=== PATIENT | female | born 1955 | race Caucasian/White ===

== ENCOUNTER 2021-05-13 07:54 | Inpatient (IN) | payer OTHER ==
[2021-05-13] MEDS ORDERED: SODIUM CHLORIDE IV ONE (08:34)
[2021-05-13] MEDS ORDERED: ACETAMINOPHEN 1000 MG/100 ML VIAL IVPB ONE (08:39)
[2021-05-13] MEDS ORDERED: ACETAMINOPHEN INJECTION 100 ML IVPB ONE (09:05)
[2021-05-13 09:48] LABS: BASO % 0.4 % (0-2.0); EOS % 0.1 % (0-4.5); HEMATOCRIT 41.1 % (32.4-45.2); HEMOGLOBIN 13.9 GM/dL (10.7-15.3); LYMPH % 14.5 % (8-40); MCH 33.1 pg (25.7-33.7); MCHC 33.9 g/dl (32.0-36.0); MEAN CELL VOLUME 97.5 fl (80-96); MEAN PLT VOLUME 8.1 fl (7.5-11.1); MONO % 6.2 % (3.8-10.2); NEUT % 78.8 % (42.8-82.8); PLATELET COUNT 445 10^3/uL (134-434); RBC 4.22 M/mm3 (3.60-5.2); RDW 14.9 % (11.6-15.6); WHITE BLOOD COUNT 10.4 K/mm3 (4.0-10.0)
[2021-05-13 09:55] LABS: INR 1.03 (0.83-1.09); PROTHROMBIN TIME (PATIENT) 12.1 SEC (9.7-13.0)
[2021-05-13 09:58] LABS: ACTIVATED PTT 26.6 SECONDS (25.2-36.5)
[2021-05-13 10:08] LABS: VENOUS BASE EXCESS 3.5 mmol/L (-2-2); VENOUS O2 SATURATION 95.5 % (70-80); VENOUS PH 7.404 (7.310-7.410)
[2021-05-13 10:18] LABS: MAGNESIUM 2.7 mg/dL (1.8-2.4); PHOSPHOROUS 2.5 mg/dL (2.5-4.9)
[2021-05-13 10:20] LABS: EPI CELLS 4 /uL (0-25.1); HYALINE CASTS 1 /uL (0-3.1); URINE APPEARANCE CLEAR; URINE BACTERIA 0 /uL (0-1359); URINE BILIRUBIN NEGATIVE (NEGATIVE); URINE COLOR YELLOW; URINE GLUCOSE (UA) NEGATIVE (NEGATIVE); URINE KETONE NEGATIVE (NEGATIVE); URINE LEUK ESTERASE TRACE (NEGATIVE); URINE NITRITE NEGATIVE (NEGATIVE); URINE PROTEIN NEGATIVE (NEGATIVE); URINE RBC 54 /uL (0-23.9); URINE UROBILINOGEN 0.2 mg/dL (0.2-1.0); URINE WBC 24 /uL (0-25.8)
[2021-05-13 10:24] LABS: ALK PHOS 82 U/L (45-117); ANION GAP 1 MMOL/L (8-16); BILIRUBIN,TOTAL 0.2 mg/dL (0.2-1); BLOOD UREA NITROGEN 41.6 mg/dL (7-18); CALCIUM 8.9 mg/dL (8.5-10.1); CHLORIDE 118 mmol/L (98-107); CO2 32 mmol/L (21-32); CREATININE 0.6 mg/dL (0.55-1.3); GLUCOSE,RANDOM 146 mg/dL (74-106); SGOT/AST 241 U/L (15-37); SGPT/ALT 395 U/L (13-61); SODIUM 151 mmol/L (136-145); TOT PROT 7.7 g/dl (6.4-8.2)
[2021-05-13] MEDS ORDERED: PIPERACILLIN/TAZOB 3.375 GM 3.375 GM/50 ML BAG IVPB ONE ×2 (14:03→19:03)
[2021-05-13] MEDS: PIPERACILLIN/TAZOB 3.375 GM 3.375 GM in DEXTROSE 5%-WATER - 50 ML IVPB SCH ×2 (14:11→19:04)
[2021-05-13] MEDS ORDERED: MINERAL OIL ENEMA 133 ML ENEMA PR ONE (15:27)
[2021-05-13] MEDS: DEXTROSE 5%-0.45% SALINE 1,000 ML IV SCH ×2 (15:30→23:58)
[2021-05-13] MEDS: CARBIDOPA/LEVODOPA 25/100 TABLET (FP) GT SCH (22:15)
[2021-05-13] MEDS: METOPROLOL TARTRATE 25 MG TABLET (FP) GT SCH (22:15)
[2021-05-13] MEDS: HEPARIN NA (PORCINE) 5,000 UNITS/ML 1ML VIAL SQ SCH (22:15)
[2021-05-13] MEDS: BACLOFEN 10 MG TABLET (FP) PEG SCH (22:16)
[2021-05-13] MEDS: ARTIFICIAL TEARS (POLYVINYL ALCOHOL) OPTH DROPS OD SCH (22:16)
[2021-05-14 00:58] VITALS: BMI 15.7
[2021-05-14] MEDS ORDERED: PIPERACILLIN/TAZOBACTAM 3.375 GM VIAL IVPB ONE ×3 (01:34→16:59)
[2021-05-14] MEDS ORDERED: DEXTROSE 5%-WATER - 50 ML IVPB ONE ×3 (01:34→16:59)
[2021-05-14] MEDS: PIPERACILLIN/TAZOB 3.375 GM 3.375 GM in DEXTROSE 5%-WATER - 50 ML IVPB SCH ×5 (01:51→20:58)
[2021-05-14] MEDS: ACETAMINOPHEN 650 MG/20.3 ML ORAL SOLUTION (CUPS) PEG PRN ×2 (02:24→10:04)
[2021-05-14] MEDS: CARBIDOPA/LEVODOPA 25/100 TABLET (FP) GT SCH ×3 (05:35→21:48)
[2021-05-14 09:41] LABS: HEMATOCRIT 35.7 % (32.4-45.2); HEMOGLOBIN 11.8 GM/dL (10.7-15.3); LYMPH % 22.2 % (8-40); MCH 32.5 pg (25.7-33.7); MEAN CELL VOLUME 98.4 fl (80-96); MEAN PLT VOLUME 7.9 fl (7.5-11.1); NEUT % 69.8 % (42.8-82.8); PLATELET COUNT 350 10^3/uL (134-434); RBC 3.63 M/mm3 (3.60-5.2); RDW 14.6 % (11.6-15.6); WHITE BLOOD COUNT 13.7 K/mm3 (4.0-10.0)
[2021-05-14] MEDS: HEPARIN NA (PORCINE) 5,000 UNITS/ML 1ML VIAL SQ SCH ×2 (10:03→21:47)
[2021-05-14] MEDS: METOPROLOL TARTRATE 25 MG TABLET (FP) GT SCH ×2 (10:03→21:48)
[2021-05-14] MEDS: BACLOFEN 10 MG TABLET (FP) PEG SCH ×2 (10:04→21:47)
[2021-05-14] MEDS: ARTIFICIAL TEARS (POLYVINYL ALCOHOL) OPTH DROPS OD SCH ×2 (10:05→21:48)
[2021-05-14 10:51] LABS: CREATININE 0.3 mg/dL (0.55-1.3)
[2021-05-14 10:52] LABS: ALBUMIN 2.5 g/dl (3.4-5.0); BILIRUBIN,TOTAL 0.6 mg/dL (0.2-1); CALCIUM 8.5 mg/dL (8.5-10.1)
[2021-05-14 12:23] LABS: BLOOD UREA NITROGEN 23.6 mg/dL (7-18); TOT PROT 6.2 g/dl (6.4-8.2)
[2021-05-14] MEDS: DEXTROSE 5%-0.45% SALINE 1,000 ML IV SCH (15:40)
[2021-05-15] MEDS: ACETAMINOPHEN 650 MG/20.3 ML ORAL SOLUTION (CUPS) PEG PRN ×3 (00:35→14:28)
[2021-05-15] MEDS ORDERED: PIPERACILLIN/TAZOBACTAM 3.375 GM VIAL IVPB ONE ×2 (01:05→17:38)
[2021-05-15] MEDS ORDERED: DEXTROSE 5%-WATER - 50 ML IVPB ONE ×2 (01:06→17:38)
[2021-05-15] MEDS: PIPERACILLIN/TAZOB 3.375 GM 3.375 GM in DEXTROSE 5%-WATER - 50 ML IVPB SCH ×3 (01:22→18:38)
[2021-05-15] MEDS: CARBIDOPA/LEVODOPA 25/100 TABLET (FP) GT SCH ×3 (06:20→21:12)
[2021-05-15] MEDS: DEXTROSE 5%-0.45% SALINE 1,000 ML IV SCH ×2 (07:06→17:43)
[2021-05-15] MEDS: METOPROLOL TARTRATE 25 MG TABLET (FP) GT SCH ×2 (10:36→21:12)
[2021-05-15] MEDS: BACLOFEN 10 MG TABLET (FP) PEG SCH ×2 (10:37→21:11)
[2021-05-15] MEDS: ARTIFICIAL TEARS (POLYVINYL ALCOHOL) OPTH DROPS OD SCH ×2 (10:37→21:13)
[2021-05-15] MEDS: HEPARIN NA (PORCINE) 5,000 UNITS/ML 1ML VIAL SQ SCH ×2 (10:37→21:10)
[2021-05-15] MEDS ORDERED: ACETAMINOPHEN 1000 MG/100 ML VIAL IVPB ONE (19:50)
[2021-05-15] MEDS ORDERED: ONDANSETRON 4 MG/2 ML VIAL IVPUSH ONE (22:55)
[2021-05-16] MEDS ORDERED: PIPERACILLIN/TAZOBACTAM 3.375 GM VIAL IVPB ONE ×3 (03:22→18:04)
[2021-05-16] MEDS ORDERED: DEXTROSE 5%-WATER - 50 ML IVPB ONE ×3 (03:22→18:04)
[2021-05-16] MEDS: PIPERACILLIN/TAZOB 3.375 GM 3.375 GM in DEXTROSE 5%-WATER - 50 ML IVPB SCH ×3 (03:52→18:08)
[2021-05-16] MEDS: CARBIDOPA/LEVODOPA 25/100 TABLET (FP) GT SCH ×3 (05:59→21:56)
[2021-05-16 08:44] LABS: BASO % 0.7 % (0-2.0); EOS % 2.6 % (0-4.5); HEMATOCRIT 35.6 % (32.4-45.2); HEMOGLOBIN 12.3 GM/dL (10.7-15.3); LYMPH % 21.4 % (8-40); MCH 33.2 pg (25.7-33.7); MCHC 34.6 g/dl (32.0-36.0); MEAN CELL VOLUME 95.8 fl (80-96); MEAN PLT VOLUME 8.1 fl (7.5-11.1); MONO % 5.7 % (3.8-10.2); NEUT % 69.6 % (42.8-82.8); PLATELET COUNT 369 10^3/uL (134-434); RBC 3.72 M/mm3 (3.60-5.2); WHITE BLOOD COUNT 9.4 K/mm3 (4.0-10.0)
[2021-05-16] MEDS: ARTIFICIAL TEARS (POLYVINYL ALCOHOL) OPTH DROPS OD SCH ×2 (09:08→21:53)
[2021-05-16] MEDS: ACETAMINOPHEN 650 MG/20.3 ML ORAL SOLUTION (CUPS) PEG PRN ×2 (09:10→18:44)
[2021-05-16] MEDS: HEPARIN NA (PORCINE) 5,000 UNITS/ML 1ML VIAL SQ SCH ×2 (09:11→21:55)
[2021-05-16] MEDS: BACLOFEN 10 MG TABLET (FP) PEG SCH ×2 (09:11→21:55)
[2021-05-16 09:26] LABS: ALBUMIN 2.3 g/dl (3.4-5.0); CALCIUM 8.4 mg/dL (8.5-10.1)
[2021-05-16 09:27] LABS: BLOOD UREA NITROGEN 7.8 mg/dL (7-18)
[2021-05-16] MEDS: METOPROLOL TARTRATE 25 MG TABLET (FP) GT SCH (09:28)
[2021-05-16 09:29] LABS: CREATININE 0.4 mg/dL (0.55-1.3)
[2021-05-16 09:31] LABS: BILIRUBIN,TOTAL 0.7 mg/dL (0.2-1); TOT PROT 6.1 g/dl (6.4-8.2)
[2021-05-16] MEDS ORDERED: POTASSIUM CHLORIDE ORAL LIQUID 20 MEQ/15 ML GT ONE (21:28)
[2021-05-16] MEDS: CARVEDILOL 3.125 MG TABLET (FP) GT SCH (21:55)
[2021-05-17] MEDS ORDERED: PIPERACILLIN/TAZOBACTAM 3.375 GM VIAL IVPB ONE ×3 (01:34→17:01)
[2021-05-17] MEDS ORDERED: DEXTROSE 5%-WATER - 50 ML IVPB ONE ×3 (01:34→17:01)
[2021-05-17] MEDS: PIPERACILLIN/TAZOB 3.375 GM 3.375 GM in DEXTROSE 5%-WATER - 50 ML IVPB SCH ×3 (01:42→17:15)
[2021-05-17] MEDS: ACETAMINOPHEN 650 MG/20.3 ML ORAL SOLUTION (CUPS) PEG PRN ×2 (06:21→21:58)
[2021-05-17] MEDS: CARBIDOPA/LEVODOPA 25/100 TABLET (FP) GT SCH ×3 (06:21→21:57)
[2021-05-17] MEDS: BACLOFEN 10 MG TABLET (FP) PEG SCH ×2 (09:46→21:57)
[2021-05-17] MEDS: HEPARIN NA (PORCINE) 5,000 UNITS/ML 1ML VIAL SQ SCH ×2 (09:46→21:57)
[2021-05-17] MEDS: CARVEDILOL 3.125 MG TABLET (FP) GT SCH ×2 (09:48→21:57)
[2021-05-17] MEDS: ARTIFICIAL TEARS (POLYVINYL ALCOHOL) OPTH DROPS OD SCH ×2 (09:49→21:59)
[2021-05-17] MEDS: METOCLOPRAMIDE HCL 10 MG/10 ML UNIT DOSE CUP GT SCH ×3 (11:17→21:57)
[2021-05-18] MEDS ORDERED: DEXTROSE 5%-WATER - 50 ML IVPB ONE ×3 (01:27→18:29)
[2021-05-18] MEDS ORDERED: PIPERACILLIN/TAZOBACTAM 3.375 GM VIAL IVPB ONE ×3 (01:27→18:29)
[2021-05-18] MEDS: PIPERACILLIN/TAZOB 3.375 GM 3.375 GM in DEXTROSE 5%-WATER - 50 ML IVPB SCH ×3 (01:41→18:35)
[2021-05-18] MEDS: CARBIDOPA/LEVODOPA 25/100 TABLET (FP) GT SCH ×3 (06:22→21:48)
[2021-05-18] MEDS: METOCLOPRAMIDE HCL 10 MG/10 ML UNIT DOSE CUP GT SCH ×4 (06:22→21:48)
[2021-05-18] MEDS: ACETAMINOPHEN 650 MG/20.3 ML ORAL SOLUTION (CUPS) PEG PRN ×2 (06:23→19:00)
[2021-05-18] MEDS: BACLOFEN 10 MG TABLET (FP) PEG SCH ×2 (11:26→21:47)
[2021-05-18] MEDS: CARVEDILOL 3.125 MG TABLET (FP) GT SCH ×2 (11:26→21:48)
[2021-05-18] MEDS: HEPARIN NA (PORCINE) 5,000 UNITS/ML 1ML VIAL SQ SCH ×2 (11:27→21:48)
[2021-05-18] MEDS: ARTIFICIAL TEARS (POLYVINYL ALCOHOL) OPTH DROPS OD SCH ×2 (11:27→21:49)
[2021-05-18] MEDS ORDERED: POTASSIUM CHLORIDE ORAL LIQUID 20 MEQ/15 ML GT ONE (12:40)
[2021-05-19] MEDS ORDERED: DEXTROSE 5%-WATER - 50 ML IVPB ONE ×2 (02:08→09:57)
[2021-05-19] MEDS ORDERED: PIPERACILLIN/TAZOBACTAM 3.375 GM VIAL IVPB ONE ×2 (02:08→09:57)
[2021-05-19] MEDS: PIPERACILLIN/TAZOB 3.375 GM 3.375 GM in DEXTROSE 5%-WATER - 50 ML IVPB SCH ×2 (02:09→10:12)
[2021-05-19] MEDS: CARBIDOPA/LEVODOPA 25/100 TABLET (FP) GT SCH ×3 (05:52→22:36)
[2021-05-19] MEDS: METOCLOPRAMIDE HCL 10 MG/10 ML UNIT DOSE CUP GT SCH ×4 (06:02→22:36)
[2021-05-19] MEDS: ACETAMINOPHEN 650 MG/20.3 ML ORAL SOLUTION (CUPS) PEG PRN ×2 (06:51→18:07)
[2021-05-19] MEDS: CARVEDILOL 3.125 MG TABLET (FP) GT SCH ×2 (10:13→22:36)
[2021-05-19] MEDS: HEPARIN NA (PORCINE) 5,000 UNITS/ML 1ML VIAL SQ SCH ×2 (10:13→22:36)
[2021-05-19] MEDS: BACLOFEN 10 MG TABLET (FP) PEG SCH ×2 (10:16→22:35)
[2021-05-19] MEDS: ARTIFICIAL TEARS (POLYVINYL ALCOHOL) OPTH DROPS OD SCH ×2 (10:17→22:35)
[2021-05-19 11:10] LABS: BASO % 0.7 % (0-2.0); EOS % 3.3 % (0-4.5); HEMATOCRIT 37.5 % (32.4-45.2); HEMOGLOBIN 12.8 GM/dL (10.7-15.3); LYMPH % 25.7 % (8-40); MCHC 34.1 g/dl (32.0-36.0); MEAN CELL VOLUME 96.8 fl (80-96); MEAN PLT VOLUME 8.7 fl (7.5-11.1); NEUT % 62.3 % (42.8-82.8); PLATELET COUNT 368 10^3/uL (134-434); RBC 3.88 M/mm3 (3.60-5.2); RDW 15.1 % (11.6-15.6); WHITE BLOOD COUNT 7.7 K/mm3 (4.0-10.0)
[2021-05-19 12:38] LABS: CALCIUM 8.6 mg/dL (8.5-10.1)
[2021-05-19 12:39] LABS: ALBUMIN 2.6 g/dl (3.4-5.0); MAGNESIUM 2.3 mg/dL (1.8-2.4)
[2021-05-19 12:42] LABS: CREATININE 0.3 mg/dL (0.55-1.3)
[2021-05-19 12:43] LABS: BILIRUBIN,TOTAL 0.5 mg/dL (0.2-1); TOT PROT 6.5 g/dl (6.4-8.2)
[2021-05-19] MEDS: FAMOTIDINE 40 MG/5 ML ORAL SUSPENSION PEG SCH (13:08)
[2021-05-19] MEDS ORDERED: PT OWN MED DRAWER 7, Y5N ONE (16:57)
[2021-05-19] MEDS: AMOX TR/POTASSIUM CLAVULANATE 400 MG/5 ML BOTTLE PEG SCH (18:07)
[2021-05-20] MEDS: FAMOTIDINE 40 MG/5 ML ORAL SUSPENSION PEG SCH ×2 (00:33→10:25)
[2021-05-20] MEDS: ACETAMINOPHEN 650 MG/20.3 ML ORAL SOLUTION (CUPS) PEG PRN (01:50)
[2021-05-20] MEDS: METOCLOPRAMIDE HCL 10 MG/10 ML UNIT DOSE CUP GT SCH ×3 (07:50→17:23)
[2021-05-20] MEDS: CARBIDOPA/LEVODOPA 25/100 TABLET (FP) GT SCH ×2 (07:50→15:24)
[2021-05-20] MEDS ORDERED: PT OWN MED DRAWER 7, Y5N ONE ×3 (10:20→17:33)
[2021-05-20] MEDS: AMOX TR/POTASSIUM CLAVULANATE 400 MG/5 ML BOTTLE PEG SCH ×2 (10:23→17:27)
[2021-05-20] MEDS: ARTIFICIAL TEARS (POLYVINYL ALCOHOL) OPTH DROPS OD SCH (10:23)
[2021-05-20] MEDS: CARVEDILOL 3.125 MG TABLET (FP) GT SCH (10:24)
[2021-05-20] MEDS: BACLOFEN 10 MG TABLET (FP) PEG SCH (10:24)
[2021-05-20] MEDS: HEPARIN NA (PORCINE) 5,000 UNITS/ML 1ML VIAL SQ SCH (10:24)
[2021-05-20 17:50] VITALS: BP 117/71; PULSE 95; TEMP 97.7
== END 2021-05-20 18:58 | DRG 444 ==
LOC: JER 07:54 → JERBED 09:03 → J5S 20:38
PROVIDERS: ADMIT Internal Medicine; ATTEND Internal Medicine
PROC: 0F9430Z Drainage of Gallbladder with Drainage Device, Percutaneous Approach (ICD-10-PCS; principal; 2021-05-13)
PROC: BF13YZZ Fluoroscopy of Gallbladder and Bile Ducts using Other Contrast (ICD-10-PCS; 2021-05-13)
DX: K80.10 Calculus of gallbladder with chronic cholecystitis without obstruction (principal); E43 Unspecified severe protein-calorie malnutrition; R53.2 Functional quadriplegia; G23.1 Progressive supranuclear ophthalmoplegia [Steele-Richardson-Olszewski]; Z68.1 Body mass index [BMI] 19.9 or less, adult; F32.9 Major depressive disorder, single episode, unspecified; G20 Parkinson's disease; R94.5 Abnormal results of liver function studies; R13.10 Dysphagia, unspecified; F02.80 Dementia in other diseases classified elsewhere, unspecified severity, without behavioral disturbance, psychotic disturbance, mood disturbance, and anxiety
CPT/HCPCS: 36415; 47490; 71045-TC-FY; 74181-TC; 76705-TC; 80053; 81003; 82803; 83605; 83690; 83735; 84100; 84484; 85025; 85610; 85730; 86850; 86900; 86901; 87040; 87070; 87075; 87086; 87102; 87116; 87205; 87206; 87210; 93005; 93010; 99285-25; C9803; J0131; J0475; J1644; U0003; U0005

== ENCOUNTER 2021-07-16 17:19 | Inpatient (IN) | payer OTHER ==
[2021-07-16 19:44] LABS: BASO % 0.3 % (0-2.0); EOS % 2.6 % (0-4.5); HEMATOCRIT 41.8 % (32.4-45.2); HEMOGLOBIN 13.1 GM/dL (10.7-15.3); MCH 31.5 pg (25.7-33.7); MCHC 31.4 g/dl (32.0-36.0); MEAN CELL VOLUME 100.4 fl (80-96); MEAN PLT VOLUME 9.7 fl (7.5-11.1); MONO % 4.5 % (3.8-10.2); NEUT % 76.6 % (42.8-82.8); PLATELET COUNT 480 10^3/uL (134-434); RBC 4.16 M/mm3 (3.60-5.2); RDW 14.3 % (11.6-15.6); WHITE BLOOD COUNT 16.6 K/mm3 (4.0-10.0)
[2021-07-16 20:15] LABS: CHLORIDE 135 mmol/L (98-107)
[2021-07-16 20:32] LABS: ANISOCYTOSIS 0; MACROCYTOSIS 1+; PLATELET ESTIMATE INCREASED
[2021-07-16 21:14] LABS: CO2 26 mmol/L (21-32)
[2021-07-16 21:31] LABS: ALBUMIN 2.1 g/dl (3.4-5.0); GLUCOSE,RANDOM 113 mg/dL (74-106)
[2021-07-16 21:34] LABS: CREATININE 0.6 mg/dL (0.55-1.3)
[2021-07-16 21:36] LABS: BILIRUBIN,TOTAL 0.6 mg/dL (0.2-1); TOT PROT 6.1 g/dl (6.4-8.2)
[2021-07-16 21:41] LABS: BLOOD UREA NITROGEN 51.3 mg/dL (7-18)
[2021-07-16 21:49] LABS: SGOT/AST 88 U/L (15-37)
[2021-07-16 21:50] LABS: ANION GAP 6 MMOL/L (8-16); SODIUM 167 mmol/L (136-145)
[2021-07-16 22:13] LABS: ALK PHOS 109 U/L (45-117); SGPT/ALT 205 U/L (13-61)
[2021-07-16] MEDS ORDERED: SODIUM CHLORIDE 0.45% 1,000 ML IV ONE (22:24)
[2021-07-17] MEDS ORDERED: ACETAMINOPHEN 1000 MG/100 ML BAG IVPB ONE (00:19)
[2021-07-17] MEDS ORDERED: LACTULOSE 20 GM/30 ML UDC (FOR ORAL USE ONLY) PEG PRN (04:18)
[2021-07-17] MEDS ORDERED: ACETAMINOPHEN 160 MG/5 ML *Children Solution PEG PRN (04:18)
[2021-07-17] MEDS ORDERED: METOPROLOL TARTRATE 25 MG TABLET (FP) GT ONE (04:22)
[2021-07-17] MEDS ORDERED: CARBIDOPA/LEVODOPA 25/100 TABLET (FP) ONE ×2 (04:53→14:29)
[2021-07-17] MEDS ORDERED: CARBIDOPA/LEVODOPA 25/100 TABLET (FP) PO SCH (06:00)
[2021-07-17] MEDS ORDERED: PATIENT'S OWN MEDICATION (NON-FORMULARY) (Menthol/Zinc Oxide [Calmoseptine Ointment] 71 GM TP SCH (06:00)
[2021-07-17 06:47] LABS: CHLORIDE 133 mmol/L (98-107)
[2021-07-17 06:50] LABS: CALCIUM 8.4 mg/dL (8.5-10.1)
[2021-07-17 06:51] LABS: BLOOD UREA NITROGEN 46.2 mg/dL (7-18); CO2 28 mmol/L (21-32); GLUCOSE,RANDOM 91 mg/dL (74-106)
[2021-07-17 06:54] LABS: CREATININE 0.5 mg/dL (0.55-1.3)
[2021-07-17 06:55] LABS: ANION GAP 3 MMOL/L (8-16); SODIUM 165 mmol/L (136-145)
[2021-07-17 06:58] LABS: HEMATOCRIT 39.3 % (32.4-45.2); HEMOGLOBIN 12.1 GM/dL (10.7-15.3); MCH 30.9 pg (25.7-33.7); MCHC 30.7 g/dl (32.0-36.0); MEAN CELL VOLUME 100.6 fl (80-96); MEAN PLT VOLUME 10.1 fl (7.5-11.1); PLATELET COUNT 451 10^3/uL (134-434); RDW 14.2 % (11.6-15.6); WHITE BLOOD COUNT 16.3 K/mm3 (4.0-10.0)
[2021-07-17 07:13] LABS: CHLORIDE 134 mmol/L (98-107)
[2021-07-17 07:17] LABS: CALCIUM 8.3 mg/dL (8.5-10.1)
[2021-07-17 07:18] LABS: BLOOD UREA NITROGEN 50.2 mg/dL (7-18); CO2 28 mmol/L (21-32); GLUCOSE,RANDOM 93 mg/dL (74-106)
[2021-07-17 07:21] LABS: CREATININE 0.4 mg/dL (0.55-1.3)
[2021-07-17 07:30] LABS: ANION GAP 2 MMOL/L (8-16); SODIUM 164 mmol/L (136-145)
[2021-07-17 08:41] LABS: ANISOCYTOSIS 1+; MACROCYTOSIS 1+; PLATELET ESTIMATE NORMAL
[2021-07-17] MEDS ORDERED: ASCORBIC ACID 500 MG TABLET (FP) ONE (08:41)
[2021-07-17] MEDS ORDERED: ZINC SULFATE 220 MG CAPSULE (FP) ONE (08:43)
[2021-07-17] MEDS ORDERED: BACLOFEN 10 MG TABLET (FP) ONE (08:43)
[2021-07-17] MEDS ORDERED: CITALOPRAM HYDROBROMIDE 10 MG TABLET ONE (08:43)
[2021-07-17] MEDS ORDERED: MAGNESIUM HYDROX 2400MG/30ML ORAL SUSPENSION 30 ML CUP ONE (08:43)
[2021-07-17] MEDS ORDERED: MIRTAZAPINE 15 MG TABLET (FP) ONE (08:44)
[2021-07-17] MEDS ORDERED: BACITRACIN 0.9 GM PACKET ONE (08:44)
[2021-07-17] MEDS ORDERED: CITALOPRAM HYDROBROMIDE 20 MG TABLET GT SCH (10:00)
[2021-07-17] MEDS ORDERED: ZINC SULFATE 220 MG CAPSULE (FP) GT SCH (10:00)
[2021-07-17] MEDS ORDERED: MAGNESIUM HYDROX 2400MG/30ML ORAL SUSPENSION 30 ML CUP PEG SCH (10:00)
[2021-07-17] MEDS ORDERED: ASCORBIC ACID 500 MG/5 ML UNIT DOSE CUP GT SCH (10:00)
[2021-07-17] MEDS ORDERED: MIRTAZAPINE 15 MG TABLET (FP) GT SCH (10:00)
[2021-07-17] MEDS ORDERED: COLLAGENASE CLOSTRIDIUM HIST. 30 GRAMS TUBE TP SCH (10:00)
[2021-07-17] MEDS ORDERED: SODIUM CHLORIDE 0.45% 1,000 ML IV SCH (10:00)
[2021-07-17] MEDS: ARTIFICIAL TEARS (POLYVINYL ALCOHOL) OPTH DROPS OD SCH ×2 (10:15→21:35)
[2021-07-17] MEDS: prednisoLONE ACETATE 1% OPHTH SUSP 5 ML BOTTLE OU SCH ×2 (10:15→21:34)
[2021-07-17] MEDS: BACLOFEN 10 MG TABLET (FP) PEG SCH ×2 (10:15→21:26)
[2021-07-17] MEDS: BACITRACIN 0.9 GM PACKET TP SCH ×2 (10:15→21:35)
[2021-07-17] MEDS ORDERED: DEXTROSE 5%-WATER - 1,000 ML IV SCH (14:15)
[2021-07-17] MEDS: CARBIDOPA/LEVODOPA 25/100 TABLET (FP) GT SCH ×2 (14:52→21:25)
[2021-07-17 17:13] LABS: URINE APPEARANCE CLEAR; URINE BILIRUBIN NEGATIVE (NEGATIVE); URINE COLOR YELLOW; URINE GLUCOSE (UA) NEGATIVE (NEGATIVE); URINE KETONE NEGATIVE (NEGATIVE); URINE LEUK ESTERASE NEGATIVE (NEGATIVE); URINE NITRITE NEGATIVE (NEGATIVE); URINE PROTEIN NEGATIVE (NEGATIVE); URINE UROBILINOGEN 0.2 mg/dL (0.2-1.0)
[2021-07-17 18:30] LABS: CHLORIDE 130 mmol/L (98-107)
[2021-07-17] MEDS ORDERED: DEXAMETHASONE SOD PHOSPHATE 10 MG/1 ML VIAL IVPUSH SCH (18:30)
[2021-07-17] MEDS ORDERED: PIPERACILLIN/TAZOB 3.375 GM 3.375 GM in DEXTROSE 5%-WATER - 50 ML IVPB SCH ×2 (18:30→19:00)
[2021-07-17 18:32] LABS: CALCIUM 8.3 mg/dL (8.5-10.1); CO2 27 mmol/L (21-32)
[2021-07-17 18:33] LABS: GLUCOSE,RANDOM 103 mg/dL (74-106)
[2021-07-17 18:36] LABS: CREATININE 0.5 mg/dL (0.55-1.3)
[2021-07-17 18:52] LABS: ANION GAP 4 MMOL/L (8-16); SODIUM 162 mmol/L (136-145)
[2021-07-17 18:59] VITALS: BMI 16.1
[2021-07-17] MEDS ORDERED: PIPERACILLIN/TAZOBACTAM 3.375 GM VIAL IVPB ONE (20:01)
[2021-07-17] MEDS ORDERED: DEXTROSE 5%-WATER - 50 ML IVPB ONE (20:01)
[2021-07-17 21:03] LABS: BLOOD UREA NITROGEN 40.3 mg/dL (7-18); CALCIUM 8.3 mg/dL (8.5-10.1)
[2021-07-17 21:07] LABS: CREATININE 0.6 mg/dL (0.55-1.3)
[2021-07-17] MEDS ORDERED: MELATONIN 1 MG TABLET PO SCH (22:00)
[2021-07-17] MEDS ORDERED: LATANOPROST 0.005% OPHTH SOLN 2.5ML BOTTLE OD SCH (22:00)
[2021-07-17 22:44] VITALS: BP 136/78; PULSE 113; TEMP 97.8
[2021-07-18] MEDS ORDERED: METOPROLOL TARTRATE 25 MG TABLET (FP) GT SCH (10:00)
== END 2021-07-18 00:10 | disposition expired | DRG 177 ==
LOC: JER 17:19 → JERBED 22:27 → J8W 07-17 16:09
PROVIDERS: ADMIT Internal Medicine; ATTEND Internal Medicine
PROC: 3E0G76Z Introduction of Nutritional Substance into Upper GI, Via Natural or Artificial Opening (ICD-10-PCS; principal; 2021-07-16)
DX: U07.1 COVID-19 (principal); L89.154 Pressure ulcer of sacral region, stage 4; E87.0 Hyperosmolality and hypernatremia; G23.1 Progressive supranuclear ophthalmoplegia [Steele-Richardson-Olszewski]; N17.9 Acute kidney failure, unspecified; F32.9 Major depressive disorder, single episode, unspecified; F03.90 Unspecified dementia, unspecified severity, without behavioral disturbance, psychotic disturbance, mood disturbance, and anxiety; Z74.01 Bed confinement status; R94.5 Abnormal results of liver function studies; G20 Parkinson's disease; Z93.1 Gastrostomy status
CPT/HCPCS: 36415; 71045-TC-FY; 80048; 80053; 81003; 83735; 85025; 87086; 87804; 93005; 93010; 99285-25; C9803; J0131; J0475; J1100; U0003; U0005